=== PATIENT | female | born 1945 | race Caucasian/White ===

== ENCOUNTER 2017-01-01 13:29 | Observation (INO) | payer MEDICARE ==
[~2017-01-01] VITALS: Ht 165.1 cm; Wt 126.7 kg
[~2017-01-01 13:29] MED LIST: ASPI-973 PO; ATOR20TA PO; HYDR25TA4 PO; INSLIS SUBQ; INSU100V7 SUBQ; LOSA25TA21 PO; METF500T7 PO; METO25TA6 PO; PARO10TA24 PO
[2017-01-01 13:30] VITALS: BP 181/78; PULSE 76; RESP 16; O2SAT 97
--- NOTE | 2017-01-01 13:44 | ED.REPORT ---
HPI-Stroke / CVA Jan 01, 2017 ED Provider: Asim Carolina MD A 71 year old female with a history of insulin dependent diabetes, hypertension , hyperlipidemia, peripheral neuropathy, CAD with CABG and anxiety presents to the ED complaining of stoke-like symptoms that began 9 days ago. Patient reports slurred speech since onset and occasional dysphagia. Last known well was 9 days ago. Patient's reports that the patient has been inactive and has been experiencing insomnia for the past few nights. She denies any changes in vision (from baseline), numbness/tingling, or changes in gait. Patient is currently taking Aspirin, insulin, atorvastatin, metoprolol and metformin. She denies history of stroke. Nursing Notes Stated Complaint: STROKE SYMPTOMS Chief Complaint: Neuro Symptoms/ Deficits Nursing Notes Reviewed: Yes Allergies: Coded Allergies: codeine (Verified Adverse Reaction, Mild, Itchy skin, 01/01/17) morphine (Verified Adverse Reaction, Mild, N/V, 01/01/17) Uncoded Allergies: NOVOCAIN (DENTAL) (Adverse Reaction, Mild, "Gall bladder pain", 01/31/12) Scheduled Aspirin (Aspirin) 81 Mg Tablet 81 MG PO HS (Reported) Atorvastatin (Lipitor) 20 Mg Tablet 20 MG PO DAILY (Reported) Insulin Glargine (Lantus U100 Insulin Vial) 100 Unit/Ml Vial 20 UNIT SUBQ BID ( Reported) Insulin Human Lispro (HumaLOG U100 Insulin Vial) 100 Unit/Ml Unit 1 UNIT SUBQ per sliding scale (Reported) Check blood sugars before meals and at bedtime. Use correction factor only before meals. Blood Sugar Lispro Correction: <151, 0 units; 151-175, 1 unit; 176-200, 2 units; 201-225, 3 units; 226-250, 4 units; 251-275, 5 units; 276-300 , 6 units; 301-325, 7 units; 326-350, 8 units; 351-375, 9 units; 376-400, 10 units; >400, 12 units. Losartan Potassium (Losartan Potassium) 25 Mg Tablet 25 MG PO DAILY (Reported) Metformin ER (Metformin ER) 500 Mg Tablet 500 MG PO BID (Reported) Metoprolol Tartrate (Metoprolol Tartrate) 25 Mg Tablet 25 MG PO TID (Reported) Paroxetine (Paxil) 10 Mg Tab 10 MG PO HS (Reported) Scheduled PRN Hydrochlorothiazide (Hydrochlorothiazide) 25 Mg Tablet 25 MG PO DAILY PRN PRN DAILY (Reported) General Time Seen by Provider: 13:46 Chief Complaint Slurred speech Hx Obtained From: Patient Arrived By: Walk-in Time last known well 9 days ago Sudden in Onset?: No Symptom Duration: Since onset Progression Since Onset: Unchanged Associated with: Reports: Speech problem, Denies: Double vision, Gait problem Pertinent Negative: Pt denies other symptoms Recent Healthcare: No recent doctor visit, No recent hospitalization Risk Factors )( TPA Administration/Criteria Inclusion Criteria: N/A NIH Stroke Scale Level of Consciousness: Alert and responsive (0) Ask Month & Age: Both questions right (0) Open/Close Eyes/Hand Porter Sample Case: Performs both tasks (0) Horizontal EO Movements: None (0) Visual Booth: No visual loss (0) Facial Palsy: Normal symmetry (0) Right Arm Motor Drift (10s): No drift 10 sec (0) Left Arm Motor Drift (10s): No drift 10 sec (0) Right Leg Motor Drift (5s): No drift 5 sec (0) Left Leg Motor Drift (5s): No drift 5 sec (0) Limb Ataxia FNF/Heel-Álvarez: No ataxia (0) Sensation (Arms/Legs/Face): No sensory loss (0) Language Aphasia: No aphasia, normal (0) Dysarthria: No dysarthria, normal (0) Extinction/Inattention: No exctinct/inattent (0) NIHSS Score: 0 Time NIHSS Performed: 14:20 )( CVA Risk Stratification Age >60 Diabetes mellitus Hyperlipidemia HypertensionNo Prior CVA/TIA Risk factors reviewed Past Medical History Past Medical History Notes: Echocardiogram April 2012 EF 60-65%, mild right ventricular dilation, elongated calcified structure attached the base of posterior mitral leaflet Past Medical History Diabetes Hyperlipidemia Obesity Peripheral neuropathy Hypertension Cataracts Gall bladder disease Anxiety Depression Hx blood transfusions Past Surgical History CABG Cardiac cath 02/17/2012 - severe epicardial coronary disease with multivessel involvement, severe left main, left anterior descending, left circumflex, and right coronary artery disease Bladder surgery 1970 Appendectomy Carpal tunnel release Cholecystectomy Hysterectomy Hernia repair Reports: CABG Family History Reports: Coronary artery disease Smoking History Never Smoker Social History Alcohol Use: Denies alcohol use Other Social History: Good social support, Local resident Ambulatory Status Independent Review of Systems Pt repot occasional dysphagia Constitutional: Denies: Chills, Fever Eyes: Denies: Blurred bilateral, Eye pain bilateral Respiratory: Denies: Shortness of breath Cardiovascular: Denies: Chest pain GI: Denies: Abdominal pain, Nausea, Vomiting Neurologic: Reports: Problem walking, Slurred speech, Denies: Change LOC, Numbness, Vision change, Weakness Complete sys rev & neg: except as marked. Physical Exam Initial Vital Signs Vital Signs (First) Date Time Temp Pulse Resp B/P Pulse Ox O2 Delivery O2 Flow Rate FiO2 01/01/17 13:30 36.5 76 16 181/78 97 Room Air Initial VS: Reviewed Extremities: Vascular intact, Neuro intact, No swelling, No tenderness Skin: Warm, Dry, No cyanosis Psychiatric: Mood/affect normal, Behavior normal, Normal thought content General/Constitutional: Awake, Alert Head / Eyes: Atraumatic, Normocephalic Neck: Atraumatic, Supple Respiratory / Chest: Atraumatic, Breath sounds NL, Breath sounds = bilat, No respiratory distress Cardiovascular: Heart rate NL, Regular rhythm, Heart sounds NL Neurologic: Oriented X3, Speech NL, No motor deficits, No sensory deficits, CN II - XII intact NEURO: See NIH Stoke Scale in Risk Interpretation & Diagnostics Lab Results Interpretation Result Diagram: 01/01/17 1345 01/01/17 1345 Test 01/01/17 13:45 White Blood Count 9.7th/mm3 (3.8-10.1) Red Blood Count 4.10mil/mm3 (3.90-5.20) Hemoglobin 12.1g/dL (12.0-15.6) Hematocrit 38.9% (35.0-46.0) Mean Corpuscular Volume 94.9fL (81-100) Mean Corpuscular Hemoglobin 29.5pg (27.0-35.0) Mean Corpuscular Hemoglobin Concent 31.1% (32.0-37.0) Red Cell Distribution Width 14.3% (12.3-15.4) Platelet Count 285bil/L (150-400) Neutrophils (%) (Auto) 62.3% (40-74) Lymphocytes (%) (Auto) 27.6% (14-46) Monocytes (%) (Auto) 8.9% (4-12) Eosinophils (%) (Auto) 0.7% (0-5) Basophils (%) (Auto) 0.1% (0-3) Prothrombin Time 9.4sec (8.1-12.5) Prothromb Time International Ratio 0.88ratio Sodium Level 139mEq/L (134-144) Potassium Level 4.5mEq/L (3.5-5.2) Chloride Level 97mEq/L (97-108) Carbon Dioxide Level 22mmol/L (18-29) Blood Urea Nitrogen 20mg/dL (8-27) Creatinine 0.83mg/dL (0.57-1.00) Estimat Glomerular Filtration Rate 97mL/min (>59) Glucose Level 158mg/dL (60-99) Calcium Level 9.0mg/dL (8.5-10.1) Total Bilirubin 0.2mg/dL (0.0-1.2) Aspartate Amino Transf (AST/SGOT) 16U/L (0-50) Alanine Aminotransferase (ALT/SGPT) 15U/L (0-32) Alkaline Phosphatase 69U/L (25-165) Troponin T < 0.010ug/L (0.0-0.011) Total Protein 7.2g/dL (6.4-8.4) Albumin 3.9g/dL (3.4-5.0) ECG Interpretation ECG Interpretation: Sinus Rhythm Rate 69 Nonspecific intraventricular conduction delay No ST changes Time: 14:00 Interpreted by: ED physician Normal ECG Interpretation: No change from prior ECGs (06/08/15) CT Head Interpretation IMPRESSION: No acute intracranial abnormalities. Dictated by: Néstor Valadez M.D. on 01/01/2017 at 14:27 Study: Head CT no contrast Interpretation / Wet Read by: Interpret - Radiologist Re-Eval/Medical Decision Med Decision/Clinical Course 71-year-old female history of CAD, CABG 3, insulin-dependent diabetes presenting with intermittent dysarthria 9 days. She reports she is close to her baseline now. It had been much worse. On exam her stroke scale is 0. Her dysarthria is no appreciable by me. CT brain was normal. Labs are unremarkable. Vital signs stable. Discussed with patient and she would like to be admitted for TIA stroke workup. Admitted to hospitalist. Re-Evaluation/Progress : Time of Eval: 14:33 )( Re-Eval Neurologic Exam: Pt is back to baseline Patient Status: Condition improved Re-Evaluation/Progress Note: Patient is rechecked. She is feeling much better. She is informed of her lab results, CT results, EKG results and diagnosis. All of the patient's questions are addressed. Patient is given the option to remain in the hospital. She understands and agrees with the treatment plan to admit. Code status is duscussed. Patient would like to be full code. Consultation : Referral / Consult Name: Shahrzad Montalvo Consulted With: Hospitalist Call Returned at: 15:08 Mid Level Game Designer: Will see patient, Agrees with eval, Agrees with plan, Accepts admit Counseled Regarding: Diagnosis, Lab results, Need for admission Patient Discharge & Departure Impression: Primary Impression: TIA (transient ischemic attack) Transient cerebral ischemia type: unspecified Qualified Code: G45.9 - Transient cerebral ischemic attack, unspecified Additional Impression: Dysarthria Disposition: ADMITTED TO HOSPITAL Discharge Condition All VS Reviewed: Yes Condition: Stable Referrals: Rashida Higginbotham MD (PCP) Scribe Attestation Portions of this note were transcribed by Raquel Vargas. I, Dr. Carolina personally performed the history, physical exam and medical decision-making; I reviewed and confirmed the accuracy of the information in the transcribed note. Signed by: Keerthi Vega, 01/01/17 2050. copies to: Rashida Higginbotham MD, Ben M MD Jan 01, 2017 13:44 RAQUEL VARGAS Jan 01, 2017 13:56
[2017-01-01 13:56] LABS: BASOPHILS % (AUTO) 0.1 % (0-3); EOSINOPHILS % (AUTO) 0.7 % (0-5); MONOCYTES % (AUTO) 8.9 % (4-12); Mean Corpuscular Hemoglobin 29.5 pg (27.0-35.0); Mean Corpuscular Volume 94.9 fL (81-100); NEUTROPHILS % (AUTO) 62.3 % (40-74); Platelet Count 285 bil/L (150-400)
[2017-01-01 14:12] LABS: INR 0.88 ratio
[2017-01-01 14:20] LABS: TROPONIN T < 0.010 ug/L (0.0-0.011)
--- NOTE | 2017-01-01 14:31 | DRSVH ---
PROCEDURE: CT BRAIN WITHOUT CONTRAST ([id number]) INDICATIONS: 71-year-old female with unsteady gait and difficulty speaking. TECHNIQUE: Noncontrast 4.5 mm thick angled axial sections acquired from the foramen magnum to the vertex, with c oronal reformats. COMPARISON: [facility], CT, CT BRAIN WO CON, 06/08/2015, 18:05. FINDINGS: Image quality: Excellent. CSF spaces: Basal cisterns are patent. No extra-axial fluid collections. Ventricles are normal in size and shape. Brain: No midline shift. No intracranial masses or hemorrhage. Smith-white matter interface is norm al. There is intracranial internal carotid and vertebral artery atherosclerosis. Skull and face: Calvarium and visualized facial bones are intact, without suspicious lesions. Sinuses: Visualized sinuses and mastoids are clear, except for incompletely visualized right maxilla ry sinus mucous retention cyst or polyp. IMPRESSION: No acute intracranial abnormalities. Dictated by: Néstor Valadez M.D. on 01/01/2017 at 14:27 Approved by: Néstor Valadez M.D. on 01/01/2017 at 14:29
[2017-01-01 15:11] VITALS: BP 134/78; PULSE 71; RESP 18; O2SAT 96
[2017-01-01] MEDS ORDERED: Ondansetron 2 mg/mL 2 mL Inj IVPUSH PRN (15:15)
[2017-01-01] MEDS ORDERED: Alum-Mag Hydrox-Simeth 30 mL Suspension PO PRN ×2 (15:15→15:45)
[2017-01-01] MEDS ORDERED: 0.9% Sodium Chloride 1,000 ML IV SCH (15:44)
[2017-01-01] MEDS ORDERED: Labetalol 5 mg/mL 4 mL Inj IVPUSH PRN (15:45)
[2017-01-01] MEDS ORDERED: Polyethylene Glycol (PEG) 17 Gm Powder PO PRN (15:45)
[2017-01-01] MEDS ORDERED: Ondansetron 2 mg/mL 2 mL Inj IV PRN (15:45)
[2017-01-01 16:10] VITALS: BP 161/59; PULSE 77; RESP 20; O2SAT 95
[2017-01-01 16:15] VITALS: PULSE 68
[2017-01-01] MEDS: Heparin 5,000 Unit/mL Inj SUBQ SCH (17:00)
[2017-01-01] MEDS ORDERED: Glucose 40% Oral Gel 15 Gm Tube PO PRN (18:00)
--- NOTE | 2017-01-01 18:17 | PCM.HPMED ---
Subjective Date of Service Jan 01, 2017 Primary Provider: Admitting Physician: Shahrzad Montalvo DO Primary Care Physician: Rashida Higginbotham MD Attending Physician: Shahrzad Montalvo DO Admit Status: From the Emergency Department, 23-Hour Observation Chief Complaint: Dysarthria. . History of Present Illness: Yun Loco is a 71-year-old female with a past medical history significant for diabetes mellitus type II, insulin using, hypertension, hyperlipidemia, CAD status post 3 vessel CABG who presented to [facility] Emergency Department complaining of stoke-like symptoms that began 9 days ago. The patient reports that last Monday her "legs did not work" when she got out of bed. She then spoke to her daughter the next day when she experienced slurred speech which was noticeable to her daughter over the phone. She has experienced slurred speech since onset and occasional dysphagia. Last known well was 9 days ago. Patient's reports that the patient has been inactive and has been experiencing insomnia for the past few nights. She denies any changes in vision (from baseline), numbness/tingling, or changes in gait. She dorsalis left arm weakness that is chronic since her tetanus shot 3-4 months ago. No other focal deficit. Patient is currently taking aspirin and atorvastatin. She denies history of stroke. Vital signs in the ER: Temperature 36.5. Pulse 76. Respiratory rate 16. Blood pressure 181/78. Pulse ox 97% on room air. PCP Dr. Mendez. . Review of Systems: A comprehensive review of systems was conducted with the patient and found to be negative except as above in the History of Present Illness. . Allergies Coded Allergies: codeine (Verified Adverse Reaction, Mild, Itchy skin, 01/01/17) morphine (Verified Adverse Reaction, Mild, N/V, 01/01/17) Uncoded Allergies: NOVOCAIN (DENTAL) (Adverse Reaction, Mild, "Gall bladder pain", 01/31/12) Home Medications Aspirin 81 mg daily at bedtime. Atorvastatin 20 mg daily at bedtime. Hydrochlorothiazide 25 mg daily. Lantus 20 units twice a day. Lispro 15 units nutritional insulin after each meal. Losartan 25 mg daily. Metformin 1000 mg twice a day. Metoprolol tartrate 25 mg twice daily. Paroxetine 10 mg daily at bedtime. . PMH 1. Hypertension. 2. Hyperlipidemia. 3. Diabetes mellitus type II, insulin using. 4. CAD status post three-vessel CABG. 5. Peripheral neuropathy. 6. Depression and anxiety. 7. Obesity. . Surgical History 1. CAD status post CABG 3 vessels. Cardiac cath 02/17/2012 - severe epicardial coronary disease with multivessel involvement, severe left main, left anterior descending, left circumflex, and right coronary artery disease 2. Bladder surgery 1969. 3. Appendectomy. 4. Bilateral carpal tunnel release. 5. Cholecystectomy. 6. Hysterectomy. 7. Abdominal hernia repair 3. 8. Bilateral bunionectomy. . Family History Mother who had atrial fibrillation and of an NH at the age of 92. Father who of an NH at the age of 77. Brother who possibly had a CVA but is . Another brother with history of an NH. 2 of 4 sons with CABG. . Social History Hx Alcohol Use: No Hx Substance Use: No Hx Tobacco Use: No Smoking Status: Never Smoker Additional Information The patient has been for 28 years. She has 5 children from 2 marriages. She is retired police cadet. She was born in [place]. . Exam Vital Signs Vital Sign - Last Date Time Temp Pulse Resp B/P Pulse Ox O2 Delivery O2 Flow Rate FiO2 01/01/17 15:11 36.7 71 18 134/78 96 Room Air Exam General: Elderly obese female lying in bed and in no acute distress, well- developed, well-nourished, appropriately interactive HEENT: Normocephalic, atraumatic. External ears without defect. Pupils equal, round, and reactive to light . Anicteric sclerae, moist conjunctivae, and no lid lag. Oropharynx free of erythema and cobble stoning with moist mucosa. Neck: Supple with full range of motion. No jugular venous distension. No bruits. No lymphadenopathy or thyromegaly. Cardiovascular: Heart sounds distant. Regular rate and rhythm without murmurs, rubs, or gallops appreciated. Pulmonary: Clear to auscultation bilaterally with no crackles, wheezes, or rhonchi. Normal respiratory effort with no use of accessory muscles. Abdomen: Soft, obese, nontender, nondistended. No hepatosplenomegaly or masses appreciated. Extremities: No clubbing, cyanosis, or edema. Skin: Normal temperature, turgor, and texture; no rash, ulcers, or subcutaneous nodules appreciated. Neurological: Cranial nerves grossly intact. Normal muscle strength, tone, and bulk. Reflexes, coordination, and sensory function within normal limits. Heel to davis and finger to nose normal. Babinski reflex normal. Sensation normal bilaterally in upper and lower extremities except for decreased sensation from knees down due to chronic diabetic neuropathy. Psychiatric: Normal mood and affect. Alert and oriented to person, place, and time. . Lab and Diagnostics Labs Item Value Date Time Calcium Level 9.0 mg/dL 01/01/17 1345 Total Bilirubin 0.2 mg/dL 01/01/17 1345 Aspartate Amino Transf (AST/SGOT) 16 U/L 01/01/17 1345 Alanine Aminotransferase (ALT/SGPT) 15 U/L 01/01/17 1345 Alkaline Phosphatase 69 U/L 01/01/17 1345 Troponin T < 0.010 ug/L 01/01/17 1345 Total Protein 7.2 g/dL 01/01/17 1345 Albumin 3.9 g/dL 01/01/17 1345 Result Diagram: 01/01/17 1345 01/01/17 1345 X-Rays, CTs and MRIs CT BRAIN WITHOUT CONTRAST IMPRESSION: No acute intracranial abnormalities. Dictated by: Néstor Valadez M.D. on 01/01/2017 at 14:27 Approved by: Néstor Valadez M.D. on 01/01/2017 at 14:29 . Assessment & Plan Yun Loco is a 71-year-old female with a past medical history significant for diabetes mellitus type II, insulin using, hypertension, hyperlipidemia, CAD status post 3 vessel CABG who presented to [facility] Emergency Department complaining of stoke-like symptoms that began 9 days ago. 1. Acute dysarthria, present on admission. Resolved. - Patient presented with symptoms of dysarthria which has resolved. Last known normal 9 days ago therefore not a TPA candidate. - Likely investment representative of probable TIA. - CTA of brain and neck showed no acute intracranial hemorrhage or abnormality, as above. - NIH score of 0. - Neuro checks, fall risk per cautions, and elevate head of the bed 30 or more , per stroke protocol. - Ordered echocardiogram with bubble study, pending. - Ordered bilateral carotid Doppler Ultrasound, pending. - Ordered PT/OT/ST evaluations, pending. - Patient is nothing by mouth until swallow evaluation with speech therapy. - May use supplemental oxygen as needed. - Allow for permissive hypertension. - Continue to monitor closely on telemetry. - Ordered dietitian consultation. - Ordered nursing to provide stroke education. - Ordered fasting lipid panel for tomorrow with morning labs. Chronic problems: 2. Hypertension, chronic. Stable. - Continue losartan 25 mg daily, hydrochlorothiazide 25 mg daily, and metoprolol tartrate 25 mg twice daily. 3. Hyperlipidemia, chronic. Presumed stable - Continue atorvastatin 20 mg daily. 4. Diabetes mellitus type II, insulin using, chronic. Stable. - Ordered Hemoglobin A1c pending. - Continue Lantus 20 units twice a day. - Continue Lispro 15 units nutritional insulin after each meal. - Continue metformin 1000 mg twice a day. - Ordered heart healthy/carbohydrate consistent diet. 5. CAD status post three-vessel CABG, chronic. Presumed stable. - Continue aspirin 81 mg daily at bedtime and atorvastatin 20 mg daily. 6. Peripheral neuropathy, chronic. Stable. - Not medically treated. 7. Depression and anxiety, chronic. Stable. - Continue Paroxetine 10 mg daily at bedtime. 8. Morbid obesity, chronic. Stable. PRN antiemetics: Zofran and Maalox. PRN bowel regimen: Senna and MiraLAX. PRN analgesics: Tylenol. Patient is admitted under observation status with expected length of stay less than 2 midnights due to severity of presenting symptoms, risk of adverse event, and complexity of treatment plan. . VTE Prophylaxis: Sub-Q Heparin (Unfractionated) Resuscitation Status: CPR: Attempt Resuscitation Attending Statement The patient was seen and examined together with Dr. Edouard on 01/01/17 and I agree with the history, exam and plan as outlined in the note above. Cindy Edouard DO Jan 01, 2017 16:00 Shahrzad Montalvo DO Jan 01, 2017 19:27
--- NOTE | 2017-01-01 19:11 | DRSVH ---
PROCEDURE: US BILATERAL DUPLEX DOPPLER IMAGING OF THE CAROTIDS ([id number]) INDICATIONS: 71-year-old female with dysarthria and transient ischemic attack. TECHNIQUE: Color and pulse Doppler interrogation was performed of both carotid systems, with image documentation and velocity measurements. COMPARISON: None. FINDINGS: All stenosis calculations are based on NASCET criteria. Right side: Brachial blood pressure: 161/59 mm Hg. Common carotid artery peak systolic velocity: 65 cm/sec. Internal carotid artery peak systolic velocity: 56 cm/sec. Internal carotid artery end diastolic velocity: 13 cm/sec. External carotid artery peak systolic velocity: 97 cm/sec. ICA/CCA peak systolic ratio: 0.86 . Smith scale imaging description: Extensive plaque within the proximal internal carotid artery. Percent internal carotid artery stenosis: Less than 50%. Vertebral artery: Not well seen. Left side: Brachial blood pressure: 181/78 mm Hg. Common carotid artery peak systolic velocity: 98 cm/sec. Internal carotid artery peak systolic velocity: 73 cm/sec. Internal carotid artery end diastolic velocity: 21 cm/sec. External carotid artery peak systolic velocity: 100 cm/sec. ICA/CCA peak systolic ratio: 0.74 . Smith scale imaging description: Extensive atherosclerotic plaque in the internal carotid artery. Percent internal carotid artery stenosis: Less than 50% . Vertebral artery: Not well seen. IMPRESSION: 1. No hemodynamically significant stenosis of the extracranial internal carotid arteries by velocity criteria. 2. Vertebral artery flow is nonvisualized on either side, as well as variable detection of carotid f low on pulsed Doppler, possibly from large size of neck. As such, sensitivity of the examination for potential superior internal carotid artery and vertebral artery stenoses is decreased. Dictated by: Néstor Valadez M.D. on 01/01/2017 at 19:02 Approved by: Néstor Valadez M.D. on 01/01/2017 at 19:09
[2017-01-01 20:00] VITALS: PULSE 81
[2017-01-01 20:43] VITALS: BP 172/61; PULSE 71; RESP 21; O2SAT 97
[2017-01-01 21:21] LABS: APPEARANCE,URINE CLEAR (CLEAR,HAZY); COLOR,URINE YELLOW (YELLOW); OCCULT BLOOD,URINE TRACE (NEGATIVE); PH,URINE 5.5 (5.0-8.0); UROBILINOGEN,URINE NORMAL (NORMAL)
[2017-01-01] MEDS: metFORMIN ER 500 mg ER24 Tablet PO SCH (21:30)
[2017-01-01] MEDS: PARoxetine 20 mg Tablet PO SCH (21:34)
[2017-01-01] MEDS: Insulin GLARgine 100 Unit/mL Syringe SUBQ SCH (21:38)
[2017-01-01] MEDS: Insulin LISPRO 300 Unit/3 mL Inj SUBQ SCH (21:40)
[2017-01-02] VITALS (8 sets, daily range): BP systolic 121–160; BP diastolic 60–86; PULSE 61–83; RESP 18–20; O2SAT 96–97
[2017-01-02] MEDS: Heparin 5,000 Unit/mL Inj SUBQ SCH ×3 (00:09→16:46)
[2017-01-02] MEDS ORDERED: diphenhydrAMINE 25 mg Capsule PO ONE ×2 (00:20→20:45)
[2017-01-02 07:09] LABS: BASOPHILS % (AUTO) 0.3 % (0-3); EOSINOPHILS % (AUTO) 0.9 % (0-5); MONOCYTES % (AUTO) 10.4 % (4-12); Mean Corpuscular Hemoglobin 29.3 pg (27.0-35.0); Mean Corpuscular Volume 93.4 fL (81-100); NEUTROPHILS % (AUTO) 58.7 % (40-74); Platelet Count 273 bil/L (150-400)
[2017-01-02] MEDS: Insulin LISPRO 300 Unit/3 mL Inj SUBQ SCH ×5 (07:54→20:27)
[2017-01-02] MEDS: metFORMIN ER 500 mg ER24 Tablet PO SCH ×2 (07:55→20:24)
[2017-01-02] MEDS: Insulin GLARgine 100 Unit/mL Syringe SUBQ SCH ×2 (07:55→20:26)
--- NOTE | 2017-01-02 10:13 | PCM.PNMED ---
Subjective Date of Service Jan 02, 2017 Subjective Yun Loco is a 71-year-old female with a past medical history significant for diabetes mellitus type II, insulin using, hypertension, hyperlipidemia, CAD status post 3 vessel CABG who presented to [facility] Emergency Department complaining of stoke-like symptoms that began 9 days ago. This morning, Ms. Loco reports that her legs feel stronger and she feels stronger overall. She continues to feel like her tongue is not moving properly and that her speech is not back at her baseline. She does not have chest pain, dyspnea, new focal weakness, or new numbness or tingling. Exam Vital Signs Vital Sign - Last Date Time Temp Pulse Resp B/P Pulse Ox O2 Delivery O2 Flow Rate FiO2 01/02/17 09:34 36.5 62 20 160/71 97 Room Air Intake and Output 01/01/17 01/01/17 01/02/17 Cumulative From/Thru 15:00 23:00 07:00 01/01/17 13:30 - 01/02/17 06:53 Intake Total 636 ml 200 ml 836 ml Output Total 850 ml 850 ml Balance 636 ml -650 ml -14 ml Intake Oral 636 ml 200 ml 836 ml Output Urine Total 850 ml 850 ml # Voids 1 1 # Bowel Movements 0 1 1 Exam General: Elderly obese female lying in bed and in no acute distress, well- developed, well-nourished, appropriately interactive HEENT: Normocephalic, atraumatic. External ears without defect. Pupils equal, round, and reactive to light . Anicteric sclerae, moist conjunctivae, and no lid lag. Oropharynx free of erythema and cobble stoning with moist mucosa. Neck: Supple with full range of motion. No jugular venous distension. No bruits. No lymphadenopathy or thyromegaly. Cardiovascular: Heart sounds distant. Regular rate and rhythm without murmurs, rubs, or gallops appreciated. Pulmonary: Clear to auscultation bilaterally with no crackles, wheezes, or rhonchi. Normal respiratory effort with no use of accessory muscles. Abdomen: Soft, obese, nontender, nondistended. No hepatosplenomegaly or masses appreciated. Extremities: No clubbing, cyanosis, or edema. Skin: Normal temperature, turgor, and texture; no rash, ulcers, or subcutaneous nodules appreciated. Neurological: Cranial nerves grossly intact. Normal muscle strength, tone, and bulk. Reflexes, coordination, and sensory function within normal limits. Heel to davis and finger to nose normal. Sensation normal bilaterally in upper and lower extremities except for decreased sensation from knees down due to chronic diabetic neuropathy. Psychiatric: Normal mood and affect. Alert and oriented to person, place, and time. IVs and Medications Medications Reviewed: Medications were reviewed in detail Lab and Diagnostics Result Diagram: 01/02/1760401/02/17604 X-Rays, CTs and MRIs CT BRAIN WITHOUT CONTRAST IMPRESSION: No acute intracranial abnormalities. Dictated by: Néstor Valadez M.D. on 01/01/2017 at 14:27 Approved by: Néstor Valadez M.D. on 01/01/2017 at 14:29 PROCEDURE: US BILATERAL DUPLEX DOPPLER IMAGING OF THE CAROTIDS IMPRESSION: 1. No hemodynamically significant stenosis of the extracranial internal carotid arteries by velocity criteria. 2. Vertebral artery flow is nonvisualized on either side, as well as variable detection of carotid flow on pulsed Doppler, possibly from large size of neck. As such, sensitivity of the examination for potential superior internal carotid artery and vertebral artery stenoses is decreased. Approved by: Néstor Valadez M.D. on 01/01/2017 at 19:09 PROCEDURE: MRI BRAIN WITHOUT CONTRAST IMPRESSION: 1. An acute pontine infarct superimposed on chronic infarcts. 2. Mild cerebral volume loss and chronic microvascular ischemic changes. 3. Bilateral maxillary sinus disease. Approved by: Ceci Black M.D. on 01/02/2017 at 15:02 Cardiac Echo Impressions Echocardiogram Report Interpretation Summary 1. Normal left ventricular size and wall thickness with preserved LV systolic function and an estimated EF of 55 to 60%. 2. Upper limits of normal right ventricular size with normal systolic function 3. No evidence for significant valvular pathology. 4. A saline contrast study showed no evidence for interatrial shunt Compared to the previous study, no appreciable change Reading Physician:02:52 PM Assessment & Plan Yun Loco is a 71-year-old female with a past medical history significant for diabetes mellitus type II, insulin using, hypertension, hyperlipidemia, CAD status post 3 vessel CABG who presented to [facility] Emergency Department complaining of stoke-like symptoms that began 9 days ago. 1. Acute on chronic ischemic stroke, active. - Acute dysarthria secondary to acute ischemic stroke. - Patient presented with symptoms of dysarthria which has resolved. Last known normal 9 days ago therefore not a TPA candidate. 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 - CTA of brain and neck showed no acute intracranial hemorrhage or abnormality, as above. US did not visualize vertebral arteries and did not show significant stenosis of extracranial internal carotid arteries. Brain MRI showed an acute pontine infarct superimposed on chronic infarct. Echocardiogram did not show an interatrial shunt. - NIH score of 0. - Physical therapy recommends No further PT needs at this time. Recommend discharge to home when medically stable. - Speech therapy recommends nectar/soft diet with medication as tolerated with appropriate liquids, no straws, alternating liquids and solids and small bites and sip. - Neuro checks, fall risk per cautions, and elevate head of the bed 30 or more , per stroke protocol. - Nursing provided stroke education. - Ordered OT evaluation, pending. - May use supplemental oxygen as needed. - Allow for permissive hypertension. - Continue to monitor closely on telemetry. - Ordered dietitian consultation. - CT neck angiogram ordered to further assess vertebral and internal carotid arteries due to limitations of US imaging with patient's neck size and given acute pontine infarct on brain MRI. Chronic problems: 2. Hypertension, chronic. Stable. - Continue losartan 25 mg daily, hydrochlorothiazide 25 mg daily, and metoprolol tartrate 25 mg twice daily. 3. Hyperlipidemia, chronic. Presumed stable - Fasting lipid panel: triglycerides 231, total cholesterol 141, LDL 54.8, HDL 40 - Continue atorvastatin 20 mg daily. LDL at goal. 4. Diabetes mellitus type II, insulin using, chronic. Stable. - Ordered Hemoglobin A1c pending. - Continue Lantus 20 units twice a day. - Continue Lispro 15 units nutritional insulin after each meal with high dose correctional scale. - Continue metformin 1000 mg twice a day. - Continue heart healthy/carbohydrate consistent diet. 5. CAD status post three-vessel CABG, chronic. Presumed stable. - Continue aspirin 81 mg daily at bedtime and atorvastatin 20 mg daily. 6. Peripheral neuropathy, chronic. Stable. - Not medically treated. 7. Depression and anxiety, chronic. Stable. - Continue Paroxetine 10 mg daily at bedtime. 8. Morbid obesity, chronic. Stable. PRN antiemetics: Zofran and Maalox. PRN bowel regimen: Senna and MiraLAX. PRN analgesics: Tylenol. Patient is admitted under observation status with expected length of stay less than 2 midnights due to severity of presenting symptoms, risk of adverse event, and complexity of treatment plan. Disposition: Likely discharged to home tomorrow on optimal medical therapy for acute on chronic ischemic stroke pending results of CT neck angiogram. VTE Prophylaxis: Sub-Q Heparin (Unfractionated) VTE Mechanical Devices: Intermittant Pneumatic CD Resuscitation Status: CPR: Attempt Resuscitation Time spent 25 minutes Attending Statement I have seen and evaluated patient at bedside in addition to directly supervising care provided by resident physician. I agree with above documentation. Kaylah Mclain DO Jan 02, 2017 10:13 Henry Mcintyre DO Jan 03, 2017 07:54
--- NOTE | 2017-01-02 14:53 | DRSVH ---
[facility] [address] [place] [address] Echocardiogram Report Name: ASHELY GOMEZ WStudy Date: 01/02/2017 Height: 65 in Hospital Exam Location: [facility] Weight: 28 3 lb Gender: Female BSA: 2.3 m2 : 1945 Age: 71 yrs BP: 156/68 mmHg Reason For Study: TIA Ordering Physician: HOSPITALIST [facility] Performed By: Danielle Montejo Referring Physician: Dr. Tessa Higginbotham Interpretation Summary 1. Normal left ventricular size and wall thickness with preserved LV systolic function and an estimated EF of 55 to 60%. 2. Upper limits of normal right ventricular size with normal systolic function 3. No evidence for significant valvular pathology. 4. A saline contrast study showed no evidence for interatrial shunt Compared to the previous study, no appreciable change Procedure: A two-dimensional transthoracic echocardiogram with color flow and Doppler was performed. The study quality was technically difficult. Comparison is made with the echocardiogram of 09-04-15. The patient was in normal sinus rhythm during the exam. Left Ventricle: The left ventricle is normal in size. There is normal left ventricular wall thickness. The ejection fraction is estimated to be 55-60%. The basal inferior wall appears hypokinetic. Assessment of diastolic parameters indicates normal left ventricular diastolic function and normal filling pressures. Right Ventricle: Borderline right ventricular enlargement. The right ventricular systolic function is normal. Atria: The left atrial size is normal. Right atrial size is normal. Injection of contrast documented no interatrial shunt. Mitral Valve: The mitral valve leaflets appear mildly thickened, but open well. There is mild mitral annular calcification. There is no mitral regurgitation noted. Aortic Valve: The aortic valve opens well. Not optimally visualized to discern if trileaflet. No aortic regurgitation is present. Tricuspid Valve: The tricuspid valve is normal in structure and function. No tricuspid regurgitation. Pulmonic Valve: The pulmonic valve is not well visualized. There is trace pulmonic regurgitation. Great Vessels: The aortic root is normal size. The dimensions of the ascending aorta are normal. The IVC is of normal diameter and collapses greater than 50% with a sniff. This suggests a low right atrial pressure of 3 mm Hg. Pericardium/ Pleura There is no pericardial effusion. There is no pleural effusion. MMode/2D Measurements & Calculations LVIDd: 5.0 cm LA dimension: 3.5 cm RA long axis Ao root diam LVIDs: 3.1 cm FS: 38.1 % LA A2 area: 14.6 cm RA area Aortic Jxn IVSd: 1.0 cm LA A4 area: 20.9 cm LVPWd: 0.72 cm LA length (vol): 4.9 cm : 12.3 cm asc Aorta LA vol: 52.5 ml RA vol: 27.6 mlDiam: 3.3 cm LA vol index RA : 12.0 mm2 IVC diam: 1.5 cm LV shabazz. diameter/BSA LV sys. diameter/BSA (cm/m^2): 2.2 (cm/m^2): 1.3 Doppler Measurements & Calculations Ao V2 max: 140.9 cm/secMV E max sheldon MV E/A: 1.4 PA V2 max Ao max P.9 mmHg : 129.6 cm/sec Med Peak E' Sheldon : 97.5 cm/sec Ao mean P.4 mmHg MV A max sheldon PA mean PG : 93.1 cm/sec E/E' med: 26.8 MV P1/2t: 80.6 msec Lat Peak E' Sheldon PA Accel Time : 0.15 sec E/E' lat: 19.5 E/e' average Pulm A Revs Dur MV A dur : 0.17 sec MV dec time: 0.27 sec MV P1/2t max sheldon Ao V2 mean PA V2 mean : 97.4 cm/sec : 62.7 cm/sec Ao V2 VTI MVA(P1/2t): 2.7 cm2 : 36.8 cm Pul Savita Lara Dur - MV A Dur: -0.06 msec Reading Physician:02:52 PM
--- NOTE | 2017-01-02 15:20 | DRSVH ---
PROCEDURE: MRI BRAIN WITHOUT CONTRAST ([id number]) INDICATIONS: dysarthria TECHNIQUE: Non-contrast axial T1 spin echo, axial T2 fast spin echo, sagittal and axial FLAIR, coronal T2 fast s pin echo, axial gradient echo, axial diffusion and ADC through the brain. COMPARISON: [facility], CT, CT BRAIN WO CON, 06/08/2015, 18:05. [facility], CT, CT BRAIN WO CON, 01/01/2017, 14:08. FINDINGS: Image quality: There are motion artifacts. CSF spaces: Ventricles appear symmetric in size and shape. Basal cisterns are patent. No extra-axi al fluid collections. Brain: There is a focus of restricted diffusion in blaine, demonstrating decreased ADC, consistent wit h acute infarct. There are old ischemic insults in blaine bilaterally. No intracranial bleed. No intra cranial mass or mass effects. There is mild cerebral volume loss for age. There are mild periventri cular and deep white matter chronic small vessel ischemic changes. Brainstem appears normal. Normal intravascular flow voids are present. Skull and face: Calvarial bone marrow is normal in signal. Orbits are normal. Sinuses: There is mucous retention cyst in maxillary sinuses bilaterally. Mastoids are clear. IMPRESSION: 1. An acute pontine infarct superimposed on chronic infarcts. 2. Mild cerebral volume loss and chronic microvascular ischemic changes. 3. Bilateral maxillary sinus disease. Dictated by: Ceci Black M.D. on 01/02/2017 at 14:40 Approved by: Ceci Black M.D. on 01/02/2017 at 15:02
[2017-01-02] MEDS: PARoxetine 20 mg Tablet PO SCH (20:23)
[2017-01-03 00:17] VITALS: BP 148/74; PULSE 68; RESP 18; O2SAT 97
[2017-01-03] MEDS: Heparin 5,000 Unit/mL Inj SUBQ SCH ×2 (00:23→08:50)
[2017-01-03 02:56] VITALS: O2SAT 80
[2017-01-03 05:00] VITALS: BP 154/67; PULSE 67; RESP 18; O2SAT 99
[2017-01-03 06:55] LABS: BASOPHILS % (AUTO) 0.1 % (0-3); EOSINOPHILS % (AUTO) 1.1 % (0-5); MONOCYTES % (AUTO) 8.6 % (4-12); Mean Corpuscular Hemoglobin 29.4 pg (27.0-35.0); Mean Corpuscular Volume 94.3 fL (81-100); NEUTROPHILS % (AUTO) 64.8 % (40-74); Platelet Count 256 bil/L (150-400)
[2017-01-03] MEDS: Insulin GLARgine 100 Unit/mL Syringe SUBQ SCH (08:46)
[2017-01-03] MEDS: Insulin LISPRO 300 Unit/3 mL Inj SUBQ SCH ×2 (08:46→11:50)
[2017-01-03] MEDS: metFORMIN ER 500 mg ER24 Tablet PO SCH (08:48)
[2017-01-03 09:50] VITALS: BP 146/56; PULSE 63; RESP 20; O2SAT 96
[2017-01-03 10:50] VITALS: PULSE 83
--- NOTE | 2017-01-03 13:43 | DRSVH ---
PROCEDURE: CT ANGIOGRAPHY OF THE NECK WITH AND WITHOUT CONTRAST ([id number]) INDICATIONS: acute on chronic pontine infarct, dysarthria TECHNIQUE: After the administration of intravenous contrast, 1.5 mm axial sections acquired from the aortic arch to the [place]. Coronal 3-D maximum intensity projection (MIP) and/or volume rendering ref ormats were then performed. For radiation dose reduction, the following was used: automated exposur e control. COMPARISON: [facility], US, US CAROTID DPLX DOPPLER BILAT, 01/01/2017, 18:14. [facility], CT, CT BRAIN WO CON, 01/01/2017, 14:08. FINDINGS: Image quality: Excellent. The origins of the left and right common and external carotid arteries demonstrate no areas of hemody namically significant stenosis, vascular occlusion or aneurysmal dilation. There is an approximate 55 % narrowing at origin of the right internal carotid artery. Minimal plaque is present at the left bi furcation, without hemodynamically significant stenosis. There is an approximate 50% at the origin o f the right vertebral artery. Aortic arch demonstrates conventional anatomy. Limited, visualized por tions subclavian vasculature are unremarkable. No suspicious bony lesions. Visualized cervical spine appears normally aligned. Lung apices demonstr ate no focal lesions. Emphysematous changes are noted. IMPRESSION: 1. Approximate 55% stenosis at the origin of the right internal carotid artery. 2. Approximate 50% stenosis is present at the origin of the right vertebral artery. The estimate of stenosis included in the report of the imaging study was calculated using the NASCET method Dictated by: Umm Antonio M.D. on 01/03/2017 at 11:40 Approved by: Umm Antonio M.D. on 01/03/2017 at 13:41
[2017-01-03] MEDS ORDERED: Amiodarone 360 mg/200 mL D5W 360 MG, Filter, Taxol 14256-28 1 EACH in IV Premix 1 EACH IV SCH (13:50)
[2017-01-03 14:33] VITALS: BP 139/78; PULSE 65; RESP 20; O2SAT 97
[2017-01-03] MEDS ORDERED: CLOP75TA28 PO (14:55)
--- NOTE | 2017-01-03 15:01 | PCM.DIMED ---
Kaylah Mclain DO 01/03/17 1501: Discharge Instructions Date of Service Jan 03, 2017 Dates of Hospitalization Jan 01, 2017 at 15:28 Discharge Diagnosis Discharge Diagnosis 1. Acute on chronic ischemic stroke Chronic problems: 2. Hypertension, chronic. 3. Hyperlipidemia, chronic. 4. Diabetes mellitus type II, insulin using, chronic. 5. CAD status post three-vessel CABG, chronic. 6. Peripheral neuropathy, chronic. 7. Depression and anxiety, chronic. 8. Morbid obesity, chronic. Diet Heart Healthy, Diabetic Activity Limited until seen by PCP Call your provider Fever or Chills, Shortness of breath, Bleeding, Chest pain, Weakness (unilateral ) Patient Instructions Stop aspirin 81 mg once daily and start clopidogrel 75 mg once daily. Continue all other medications as previously prescribed. Discuss with your primary care provider about possibly modifying your diabetes medication regimen for the best blood sugar control. You should discuss with your primary care provider about possibly having a sleep study done to look for sleep apnea. Follow up with your primary care provider in 1 week. Follow-up Provider: Rashida Higginbotham MD Follow-up with PCP in: 1 week Henry Mcintyre DO 01/04/17 0752: Discharge Instructions Attending's Statement Read and agree Kaylah Mclain DO Jan 03, 2017 15:01 Henry Mcintyre DO Jan 04, 2017 07:52
--- NOTE | 2017-01-03 15:39 | PCM.DC.MED ---
Discharge Summary Date of Service Jan 03, 2017 Dates of Hospitalization Date of Hospital Admission Jan 01, 2017 at 15:28 Date of Discharge: Jan 03, 2017 Providers: Admitting Physician: Shahrzad Montalvo DO Primary Care Physician: Rashida Higginbotham MD Attending Physician: Shahrzad Montalvo DO Diagnosis at Time of Discharge Diagnosis at Time of Discharge 1. Acute on chronic ischemic stroke Chronic problems: 2. Hypertension, chronic. 3. Hyperlipidemia, chronic. 4. Diabetes mellitus type II, insulin using, chronic. 5. CAD status post three-vessel CABG, chronic. 6. Peripheral neuropathy, chronic. 7. Depression and anxiety, chronic. 8. Morbid obesity, chronic. Procedures XRay, CTs & MRIs CT BRAIN WITHOUT CONTRAST IMPRESSION: No acute intracranial abnormalities. Dictated by: Néstor Valadez M.D. on 01/01/2017 at 14:27 Approved by: Néstor Valadez M.D. on 01/01/2017 at 14:29 PROCEDURE: US BILATERAL DUPLEX DOPPLER IMAGING OF THE CAROTIDS IMPRESSION: 1. No hemodynamically significant stenosis of the extracranial internal carotid arteries by velocity criteria. 2. Vertebral artery flow is nonvisualized on either side, as well as variable detection of carotid flow on pulsed Doppler, possibly from large size of neck. As such, sensitivity of the examination for potential superior internal carotid artery and vertebral artery stenoses is decreased. Approved by: Néstor Valadez M.D. on 01/01/2017 at 19:09 PROCEDURE: MRI BRAIN WITHOUT CONTRAST IMPRESSION: 1. An acute pontine infarct superimposed on chronic infarcts. 2. Mild cerebral volume loss and chronic microvascular ischemic changes. 3. Bilateral maxillary sinus disease. Approved by: Ceci Black M.D. on 01/02/2017 at 15:02 PROCEDURE: CT ANGIOGRAPHY OF THE NECK WITH AND WITHOUT CONTRAST IMPRESSION: 1. Approximate 55% stenosis at the origin of the right internal carotid artery. 2. Approximate 50% stenosis is present at the origin of the right vertebral artery. The estimate of stenosis included in the report of the imaging study was calculated using the NASCET method Approved by: Umm Antonio M.D. on 01/03/2017 at 13:41 Cardiac Echo Impression Echocardiogram Report Interpretation Summary 1. Normal left ventricular size and wall thickness with preserved LV systolic function and an estimated EF of 55 to 60%. 2. Upper limits of normal right ventricular size with normal systolic function 3. No evidence for significant valvular pathology. 4. A saline contrast study showed no evidence for interatrial shunt Compared to the previous study, no appreciable change Reading Physician:02:52 PM Brief History From the history and physical performed by Dr. Cindy Edouard on 01/01/2017: Yun Loco is a 71-year-old female with a past medical history significant for diabetes mellitus type II, insulin using, hypertension, hyperlipidemia, CAD status post 3 vessel CABG who presented to [facility] Emergency Department complaining of stoke-like symptoms that began 9 days ago. The patient reports that last Monday her "legs did not work" when she got out of bed. She then spoke to her daughter the next day when she experienced slurred speech which was noticeable to her daughter over the phone. She has experienced slurred speech since onset and occasional dysphagia. Last known well was 9 days ago. Patient's reports that the patient has been inactive and has been experiencing insomnia for the past few nights. She denies any changes in vision (from baseline), numbness/tingling, or changes in gait. She dorsalis left arm weakness that is chronic since her tetanus shot 3-4 months ago. No other focal deficit. Patient is currently taking aspirin and atorvastatin. She denies history of stroke. Vital signs in the ER: Temperature 36.5. Pulse 76. Respiratory rate 16. Blood pressure 181/78. Pulse ox 97% on room air. PCP Dr. Mendez. . Hospital Course Yun Loco is a 71-year-old female with a past medical history significant for diabetes mellitus type II, insulin using, hypertension, hyperlipidemia, CAD status post 3 vessel CABG who presented to [facility] Emergency Department complaining of stoke-like symptoms that began 9 days ago. 1. Acute on chronic ischemic stroke, active. - Acute dysarthria secondary to acute ischemic stroke. - Patient presented with symptoms of dysarthria which has resolved. Last known normal 9 days prior to admission to the hospital therefore not a TPA candidate. - CTA of brain and neck showed no acute intracranial hemorrhage or abnormality, as above. US did not visualize vertebral arteries and did not show significant stenosis of extracranial internal carotid arteries. Brain MRI showed an acute pontine infarct superimposed on chronic infarct. Echocardiogram did not show an interatrial shunt. CT angiogram neck showed 55% stenosis at the origin of the right internal carotid artery and 50% stenosis is present at the origin of the right vertebral artery. - NIH score of 0. - Physical therapy recommended no further PT needs at this time. Recommended discharge to home when medically stable. - Speech therapy recommended upgrade to thin/soft with no straws. - Occupational therapy evaluation recommended no further OT warranted at this time - Nursing provided stroke education. - Stopped aspirin 81 mg daily and started clopidogrel 75 mg once daily for secondary stroke prevention. - Recommend discussing with primary care provider about possibly increasing dose of atorvastatin to 40 mg once daily and possible referral to neurology as an outpatient for vertebral artery and carotid artery stenosis as noted above. Chronic problems: 2. Hypertension, chronic. Stable. - Continued losartan 25 mg daily, hydrochlorothiazide 25 mg daily, and metoprolol tartrate 25 mg twice daily. 3. Hyperlipidemia, chronic. Presumed stable - Fasting lipid panel: triglycerides 231, total cholesterol 141, LDL 54.8, HDL 40 - Continued atorvastatin 20 mg daily and recommendation as above. 4. Diabetes mellitus type II, insulin using, chronic. Stable. - Ordered Hemoglobin A1c 8.2% and morning blood glucose ranged from 158-235. - Continued Lantus 20 units twice a day. - Continued Lispro 15 units nutritional insulin each meal with high dose correctional scale. - Continued metformin 1000 mg twice a day. - Recommend discussing possibly modifying patient's medication regimen for optimal blood glucose control. 5. CAD status post three-vessel CABG, chronic. Presumed stable. - Stopped aspirin 81 mg daily at bedtime and continued atorvastatin 20 mg daily. 6. Peripheral neuropathy, chronic. Stable. - Not medically treated. 7. Depression and anxiety, chronic. Stable. - Continued Paroxetine 10 mg daily at bedtime. 8. Morbid obesity, chronic. Stable. Exam Vital Signs (Last) Date Time Temp Pulse Resp B/P Pulse Ox O2 Delivery O2 Flow Rate FiO2 01/03/17 14:33 36.7 65 20 139/78 97 Room Air 01/03/17 05:00 2.00 Exam General: Elderly obese female sitting up in bed and in no acute distress, well- developed, well-nourished, appropriately interactive HEENT: Normocephalic, atraumatic. External ears without defect. Pupils equal, round, and reactive to light . Anicteric sclerae, moist conjunctivae, and no lid lag. Oropharynx free of erythema and cobble stoning with moist mucosa. Neck: Supple with full range of motion. No jugular venous distension. No bruits. No lymphadenopathy or thyromegaly. Cardiovascular: Heart sounds distant. Regular rate and rhythm without murmurs, rubs, or gallops appreciated. Pulmonary: Clear to auscultation bilaterally with no crackles, wheezes, or rhonchi. Normal respiratory effort with no use of accessory muscles. Abdomen: Soft, obese, nontender, nondistended. No hepatosplenomegaly or masses appreciated. Extremities: No clubbing, cyanosis, or edema. Skin: Normal temperature, turgor, and texture; no rash, ulcers, or subcutaneous nodules appreciated. Neurological: Cranial nerves grossly intact. Normal muscle strength, tone, and bulk. Reflexes, coordination, and sensory function within normal limits. Heel to davis and finger to nose normal. Sensation normal bilaterally in upper and lower extremities except for decreased sensation from knees down due to chronic diabetic neuropathy. Psychiatric: Normal mood and affect. Alert and oriented to person, place, and time. Test 01/01/17 13:45 01/01/17 20:29 01/02/17 06:05 01/03/17 06:18 Prothrombin Time 9.4sec (8.1-12.5) Prothromb Time International Ratio 0.88ratio Hemoglobin A1c 8.2% (4.8-5.6) Magnesium Level 1.9mg/dL (1.6-2.6) Troponin T < 0.010ug/L (0.0-0.011) Urine Color Yellow (YELLOW) Urine Appearance Clear (CLEAR,HAZY) Urine pH 5.5 (5.0-8.0) Urine Specific [place] 1.020 (1.003-1.035) Urine Protein Negativemg/dL (NEG,TRACE) Urine Glucose (UA) 100mg/dL (NEGATIVE) Urine Ketones Negativemg/dL (NEGATIVE) Urine Occult Blood Trace (NEGATIVE) Urine Nitrite Negative (NEGATIVE) Urine Bilirubin Negative (NEGATIVE) Urine Urobilinogen Normalmg/dL (NORMAL) Urine Leukocyte Esterase Small (NEGATIVE) Urine RBC 3-10/hpf (0-2) Urine WBC 11-50/hpf (0-5) Urine Epithelial Cells Few/hpf (NONE-MOD) Urine Crystals None seen (NONE SEEN) Urine Bacteria Few/hpf (NONE-FEW) Urine Hyaline Casts None/lpf (NONE) Urine Granular Casts None seen (NONE SEEN) Urine Waxy Casts None seen (NONE SEEN) Urine Red Blood Cell Casts None seen (NONE SEEN) Urine White Blood Cell Casts None seen (NONE SEEN) Urine Mucus None seen (None Seen) Urine Trichomonas None seen (NONE SEEN) Urine Yeast None (NONE SEEN) Urinalysis Comment None Urine Culture Reflexed Indicated Triglycerides Level 231mg/dL (0-149) Cholesterol Level 141mg/dL (100-199) LDL Cholesterol, Calculated 54.800mg/dL (0-99) VLDL Cholesterol 46.200mg/dL HDL Cholesterol 40mg/dL (>39) Cholesterol/HDL Ratio 3.53 (0.0-4.4) White Blood Count 8.5th/mm3 (3.8-10.1) Red Blood Count 3.84mil/mm3 (3.90-5.20) Hemoglobin 11.3g/dL (12.0-15.6) Hematocrit 36.2% (35.0-46.0) Mean Corpuscular Volume 94.3fL (81-100) Mean Corpuscular Hemoglobin 29.4pg (27.0-35.0) Mean Corpuscular Hemoglobin Concent 31.2% (32.0-37.0) Red Cell Distribution Width 13.9% (12.3-15.4) Platelet Count 256bil/L (150-400) Neutrophils (%) (Auto) 64.8% (40-74) Lymphocytes (%) (Auto) 25.2% (14-46) Monocytes (%) (Auto) 8.6% (4-12) Eosinophils (%) (Auto) 1.1% (0-5) Basophils (%) (Auto) 0.1% (0-3) Sodium Level 140mEq/L (134-144) Potassium Level 4.5mEq/L (3.5-5.2) Chloride Level 100mEq/L (97-108) Carbon Dioxide Level 26mmol/L (18-29) Blood Urea Nitrogen 16mg/dL (8-27) Creatinine 0.70mg/dL (0.57-1.00) Estimat Glomerular Filtration Rate 118mL/min (>59) Glucose Level 220mg/dL (60-99) Calcium Level 8.8mg/dL (8.5-10.1) Total Bilirubin 0.3mg/dL (0.0-1.2) Aspartate Amino Transf (AST/SGOT) 12U/L (0-50) Alanine Aminotransferase (ALT/SGPT) 12U/L (0-32) Alkaline Phosphatase 56U/L (25-165) Total Protein 6.2g/dL (6.4-8.4) Albumin 3.9g/dL (3.4-5.0) Discharge Medications Discharge Medications Atorvastatin (Lipitor) 20 Mg Tablet 20 MG PO HS (Reported) Clopidogrel (Clopidogrel) 75 Mg Tablet 75 MG PO DAILY Prescribed by: EDITH AMOS DO Hydrochlorothiazide (Hydrochlorothiazide) 25 Mg Tablet 25 MG PO DAILY (Reported ) Insulin Glargine (Lantus U100 Insulin Vial) 100 Unit/Ml Vial 20 UNIT SUBQ BID ( Reported) Insulin Human Lispro (HumaLOG U100 Insulin Vial) 100 Unit/Ml Unit 1 UNIT SUBQ per sliding scale (Reported) Check blood sugars before meals and at bedtime. Use correction factor only before meals. Blood Sugar Lispro Correction: <151, 0 units; 151-175, 1 unit; 176-200, 2 units; 201-225, 3 units; 226-250, 4 units; 251-275, 5 units; 276-300 , 6 units; 301-325, 7 units; 326-350, 8 units; 351-375, 9 units; 376-400, 10 units; >400, 12 units. Losartan Potassium (Losartan Potassium) 25 Mg Tablet 25 MG PO DAILY (Reported) Metformin ER (Metformin ER) 500 Mg Tablet 1,000 MG PO BID (Reported) Metoprolol Tartrate (Metoprolol Tartrate) 25 Mg Tablet 25 MG PO BID (Reported) Paroxetine (Paxil) 10 Mg Tab 10 MG PO HS (Reported) Followup Plan Discharge Diet: Heart Healthy, Diabetic Discharge Activity: Limited until seen by PCP Patient Instructions Stop aspirin 81 mg once daily and start clopidogrel 75 mg once daily. Continue all other medications as previously prescribed. Discuss with your primary care provider about possibly modifying your diabetes medication regimen for the best blood sugar control. You should discuss with your primary care provider about possibly having a sleep study done to look for sleep apnea. Follow up with your primary care provider in 1 week. Follow-up Provider: Rashida Higginbotham MD Follow-up with PCP in: 1 week Time spent 40 minutes Attending Statement I have seen and evaluated patient at bedside in addition to directly supervising care provided by resident physician. I agree with above documentation. copies to: Rashida Higginbotham MD, Marissa L DO Jan 03, 2017 15:39 Henry Mcintyre DO Jan 04, 2017 07:58
== END 2017-01-03 15:45 | disposition home or self-care (01) ==
LOC: SED 13:29 → MPC 15:28
PROVIDERS: ADMIT Neuromusculoskeletal Medicine & OMM; ATTEND Neuromusculoskeletal Medicine & OMM
DX: I63.231 Cerebral infarction due to unspecified occlusion or stenosis of right carotid arteries (principal); R47.1 Dysarthria and anarthria; E11.42 Type 2 diabetes mellitus with diabetic polyneuropathy; I10 Essential (primary) hypertension; E78.5 Hyperlipidemia, unspecified; I25.10 Atherosclerotic heart disease of native coronary artery without angina pectoris; F32.9 Major depressive disorder, single episode, unspecified; F41.9 Anxiety disorder, unspecified; E66.01 Morbid (severe) obesity due to excess calories; Z95.1 Presence of aortocoronary bypass graft; Z79.82 Long term (current) use of aspirin; Z79.4 Long term (current) use of insulin; Z79.899 Other long term (current) drug therapy

== ENCOUNTER 2017-06-12 20:02 | Emergency (ER) | payer MEDICARE ==
[~2017-06-12] VITALS: Ht 165.1 cm; Wt 125.0 kg
[~2017-06-12 20:02] MED LIST changes: -ASPI-973 PO; +CLOP75TA28 PO
[2017-06-12 20:06] VITALS: BP 168/84; PULSE 76; RESP 20; O2SAT 97
--- NOTE | 2017-06-12 21:40 | ED.REPORT ---
HPI-General Illness Date of Service Jun 12, 2017 ED Provider: Dr. Holder Pt is a right-handed 71 year old female with a history of multiple strokes, diabetes, hyperlipidemia, hypertension, anxiety and depression who presents to the ED complaining of upper left arm pain onset several months ago after receiving a tetanus shot. The pain is described as "muscle pain" that prevents her from lifting her arm. The pain has progressively worsened over time but worsened acutely last night. She was on the phone with her son, and it occurred to him this could be atypical cardiac pain. He advised her to take one of her nitroglycerin, and so she took a nitro, which helped to relieve her pain somewhat. The pt also complains of associated neck pain. She went to the chiropractor which gave her temporary relief of her neck pain but did not improve her shoulder pain. Pt denies SOB, chest pain, cough, tooth pain, nausea , vomiting or diaphoresis. Nursing Notes Stated Complaint: PAIN IN UPPER LEFT ARM Chief Complaint: Extremity Trauma Nursing Notes Reviewed: Yes Allergies: Coded Allergies: procaine (Verified Allergy, Unknown, 06/12/17) ENTERED FROM UNCODED ALLERGIES codeine (Verified Adverse Reaction, Mild, Itchy skin, 06/12/17) morphine (Verified Adverse Reaction, Mild, N/V, 06/12/17) Uncoded Allergies: NOVOCAIN (DENTAL) (Adverse Reaction, Mild, "Gall bladder pain", 01/31/12) Scheduled Atorvastatin (Lipitor) 20 Mg Tablet 20 MG PO HS Clopidogrel (Clopidogrel) 75 Mg Tablet 75 MG PO DAILY Hydrochlorothiazide (Hydrochlorothiazide) 25 Mg Tablet 25 MG PO DAILY Insulin Glargine (Lantus U100 Insulin Vial) 100 Unit/Ml Vial 20 UNIT SUBQ BID Insulin Human Lispro (HumaLOG U100 Insulin Vial) 100 Unit/Ml Unit 1 UNIT SUBQ per sliding scale Check blood sugars before meals and at bedtime. Use correction factor only before meals. Blood Sugar Lispro Correction: <151, 0 units; 151-175, 1 unit; 176-200, 2 units; 201-225, 3 units; 226-250, 4 units; 251-275, 5 units; 276-300 , 6 units; 301-325, 7 units; 326-350, 8 units; 351-375, 9 units; 376-400, 10 units; >400, 12 units. Losartan Potassium (Losartan Potassium) 25 Mg Tablet 25 MG PO DAILY Metformin ER (Metformin ER) 500 Mg Tablet 1,000 MG PO BID Metoprolol Tartrate (Metoprolol Tartrate) 25 Mg Tablet 25 MG PO BID Paroxetine (Paxil) 10 Mg Tab 10 MG PO HS General Time Seen by MD: 21:39 Chief Complaint Other (Left arm pain) Hx Obtained From: Patient Arrived By: Walk-in Sudden in Onset?: No Onset Occurred: 1 week ago Location: : Arm right Recent Healthcare: No recent doctor visit, No recent hospitalization Similar Sx Previous: No Past Medical History Past Medical History Notes: Echocardiogram April 2012 EF 60-65%, mild right ventricular dilation, elongated calcified structure attached the base of posterior mitral leaflet Past Medical History Diabetes Hyperlipidemia Obesity Peripheral neuropathy Hypertension Cataracts Gall bladder disease Anxiety Depression Hx blood transfusions Strokes Past Surgical History CABG Cardiac cath 02/17/2012 - severe epicardial coronary disease with multivessel involvement, severe left main, left anterior descending, left circumflex, and right coronary artery disease Bladder surgery 1970 Appendectomy Carpal tunnel release Cholecystectomy Hysterectomy Hernia repair Family History Reports: Coronary artery disease Smoking History Never Smoker Social History Alcohol Use: Denies alcohol use Other Social History: Good social support, Local resident Ambulatory Status Independent Review of Systems Full Review of Systems Ears / Nose / Throat: Denies: Toothache Respiratory: Denies: Non-productive cough, Shortness of breath Cardiovascular: Denies: Chest pain GI: Denies: Abdominal pain, Nausea, Vomiting Musculoskeletal: Reports: Extremity pain (left upper arm), Neck pain Skin: Denies Diaphoresis, Denies Rash Complete sys rev & neg: except as marked. Physical Exam Vital Signs Vital Signs Date Time Temp Pulse Resp B/P Pulse Ox O2 Delivery O2 Flow Rate FiO2 06/12/17 20:06 37.1 76 20 168/84 97 Room Air Initial VS: Reviewed General/Constitutional: Awake, Alert Appearance / Presentation: Positive: Obese Head / Eyes: Atraumatic, Normocephalic, PERRL, EOMI ENT: Atraumatic, Airway patent, Mucous membranes moist Neck: Atraumatic, Supple, Full range of motion Respiratory / Chest: Atraumatic, Breath sounds NL, Breath sounds = bilat, No respiratory distress Cardiovascular: Heart rate NL, Regular rhythm, Heart sounds NL Abdomen: Atraumatic, Soft, Non-tender Back: Atraumatic, Full range of motion Upper Extremities Upper Extremity / MS: Neurologic intact, Vascular intact Left shoulder immobile, except for movement of the scapula Left biceps is tender to palpation Lower Extremity / Pelvis / MS: Atraumatic, Inspection NL, Full range of motion Skin: Atraumatic, Color NL, No rash, Warm, Dry Neurologic: Oriented X3, Speech NL, No sensory deficits Psychiatric: Affect NL, Mood NL Interpretation & Diagnostics Lab Results Interpretation Result Diagram: 06/12/17212806/12/172128 Test 06/12/17 21:29 06/12/17 22:11 White Blood Count 8.6th/mm3 (3.8-10.1) Red Blood Count 4.15mil/mm3 (3.90-5.20) Hemoglobin 12.3g/dL (12.0-15.6) Hematocrit 38.3% (35.0-46.0) Mean Corpuscular Volume 92.3fL (81-100) Mean Corpuscular Hemoglobin 29.6pg (27.0-35.0) Mean Corpuscular Hemoglobin Concent 32.1% (32.0-37.0) Red Cell Distribution Width 14.1% (12.3-15.4) Platelet Count 266bil/L (150-400) Neutrophils (%) (Auto) 65.6% (40-74) Lymphocytes (%) (Auto) 24.4% (14-46) Monocytes (%) (Auto) 9.2% (4-12) Eosinophils (%) (Auto) 0.5% (0-5) Basophils (%) (Auto) 0.1% (0-3) Sodium Level 139mEq/L (134-144) Potassium Level 4.7mEq/L (3.5-5.2) Chloride Level 99mEq/L (97-108) Carbon Dioxide Level 21mmol/L (18-29) Blood Urea Nitrogen 23mg/dL (8-27) Creatinine 0.99mg/dL (0.57-1.00) Estimat Glomerular Filtration Rate 79mL/min (>59) Glucose Level 302mg/dL (60-99) Calcium Level 8.9mg/dL (8.5-10.1) Magnesium Level 1.7mg/dL (1.6-2.6) Total Bilirubin 0.2mg/dL (0.0-1.2) Aspartate Amino Transf (AST/SGOT) 14U/L (0-50) Alanine Aminotransferase (ALT/SGPT) 16U/L (0-32) Alkaline Phosphatase 65U/L (25-165) Troponin T 0.010ug/L (0.0-0.011) Total Protein 7.5g/dL (6.4-8.4) Albumin 3.9g/dL (3.4-5.0) Hold Zelaya Top Tube Received (Received) Hold Urine Received (Received) ECG Interpretation ECG Interpretation: Normal sinus rhythm of 81 Nonspecific intraventricular conduction delay When compared with ECG of 01-Jan-2017 14:00:50, No significant change Time: 20:48 Interpreted by: ED physician X-Ray Chest Interpretation Chest Xray Interpretation: IMPRESSION: No acute cardiopulmonary disease process. Dictated by: Ida Navarrete MD, PhD on 06/12/2017 at 22:04 Approved by: Ida Navarrete MD, PhD on 06/12/2017 at 22:06 Interpretation / Wet Read by: Interpret - Radiologist Re-Eval/Medical Decision Med Decision/Clinical Course 71-year-old presents with arm pain and shoulder pain with a reasonable concern that this could be cardiac in character. Her cardiogram is quite normal. Labs are unremarkable. Pain is been present for quite a long time including all day today and this evening. On exam, she has almost no shoulder mobility and appears to have her frozen shoulder, with almost all motion observable the results of moving her scapula. She is referred back to her PCP for referral to physical therapy, and range of motion exercises discussed and demonstrated. Discharged now in stable condition with diagnosis of frozen shoulder and arm pain. Source of Hx: Old records Time of Eval: 23:36 Patient Status: Condition improved Re-Evaluation/Progress Note: Pt rechecked. Informed pt of plan for discharge. Pt understands and agrees with plan. F/U instructions and RTER warnings given. All questions addressed. Counseled Regarding: Diagnosis, Lab results, Need for follow-up, When/why to return to ED Discharge & Departure Primary Impression: Frozen shoulder syndrome Laterality: left Qualified Code: M75.02 - Adhesive capsulitis of left shoulder Disposition: Home Discharge Condition All VS Reviewed: Yes Condition: Stable Patient Instructions: Exercises for Shoulder Abduction and Adduction (ED), Exercises for Shoulder Flexion and Extension (ED) Additional Instructions: You are developing a frozen shoulder. This can be managed with physical therapy and a lot of work. It is worth doing, because you are losing most all of your mobility in that shoulder, and that can be improved. Ask you doctor about referral to physical therapy. We do not see evidence of a heart attack or other explanation for the pain. Follow-up with your doctor this week. Return if any immediate issues. Referrals: Rashida Higginbotham MD (PCP) Scribe Attestation Portions of this note were transcribed by Milady Miranda and Mo Hawthorne. I, personally performed the history, physical exam and medical decision- making; I reviewed and confirmed the accuracy of the information in the transcribed note. copies to: Rashida Higginbotham MD, Christopher W MD Jun 12, 2017 21:40 Milady Miranda Jun 12, 2017 21:47 MO HAWTHORNE Jun 12, 2017 23:33
[2017-06-12 21:42] LABS: BASOPHILS % (AUTO) 0.1 % (0-3); EOSINOPHILS % (AUTO) 0.5 % (0-5); MONOCYTES % (AUTO) 9.2 % (4-12); Mean Corpuscular Hemoglobin 29.6 pg (27.0-35.0); Mean Corpuscular Volume 92.3 fL (81-100); NEUTROPHILS % (AUTO) 65.6 % (40-74); Platelet Count 266 bil/L (150-400)
[2017-06-12 22:03] LABS: TROPONIN T 0.01 ug/L (0.0-0.011)
--- NOTE | 2017-06-12 22:07 | DRSVH ---
PROCEDURE: X-RAY CHEST ONE VIEW, PORTABLE ([id number]) INDICATIONS: left arm pain TECHNIQUE: One view of the chest was acquired. COMPARISON: [facility], , CHEST 1VW (PORTABLE), 03/06/2014, 2:43. FINDINGS: Surgical changes and devices: Status post CABG procedure. Lungs and pleura: No pleural effusions or pneumothorax. Lungs are clear. Mediastinum: Mediastinal contours appear normal. Heart size is normal. Bones and chest wall: No suspicious bony lesions. Overlying soft tissues appear unremarkable. IMPRESSION: No acute cardiopulmonary disease process. Dictated by: Ida Navarrete MD, PhD on 06/12/2017 at 22:04 Approved by: Ida Navarrete MD, PhD on 06/12/2017 at 22:06
[2017-06-12 22:16] LABS: Magnesium 1.7 mg/dL (1.6-2.6)
== END 2017-06-12 23:39 | disposition home or self-care (01) ==
LOC: SED 20:02
DX: M75.02 Adhesive capsulitis of left shoulder (principal); E11.9 Type 2 diabetes mellitus without complications; E78.5 Hyperlipidemia, unspecified; I10 Essential (primary) hypertension; F41.9 Anxiety disorder, unspecified; Z90.89 Acquired absence of other organs; Z87.19 Personal history of other diseases of the digestive system; Z86.79 Personal history of other diseases of the circulatory system; Z90.49 Acquired absence of other specified parts of digestive tract; Z95.1 Presence of aortocoronary bypass graft; Z90.710 Acquired absence of both cervix and uterus; Z86.73 Personal history of transient ischemic attack (TIA), and cerebral infarction without residual deficits; Z79.84 Long term (current) use of oral hypoglycemic drugs; Z79.4 Long term (current) use of insulin; Z88.5 Allergy status to narcotic agent; Z88.8 Allergy status to other drugs, medicaments and biological substances